=== PATIENT | male | born 1995 | race Caucasian/White ===

== ENCOUNTER 2016-12-12 16:00 | Emergency (ER) | payer OTHER ==
[2016-12-12] MEDS ORDERED: HYDROCODONE/ACETAMINOPHEN 5-325 MG TABLET PO ONE (16:44)
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
[2016-12-12] MEDS ORDERED: HYDROCODONE/ACETAMINOPHEN 5-325 MG 6 TAB/DSPK PO PRN (18:40)
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
[2016-12-12 18:51] VITALS: BP 119/78
== END 2016-12-12 19:00 | disposition home or self-care (01) ==
LOC: ER 16:00
DX: S00.33XA Contusion of nose, initial encounter (principal); S50.312A Abrasion of left elbow, initial encounter; S80.212A Abrasion, left knee, initial encounter; R51 Headache; R04.0 Epistaxis; F17.210 Nicotine dependence, cigarettes, uncomplicated; V87.7XXA Person injured in collision between other specified motor vehicles (traffic), initial encounter
CPT/HCPCS: 99283

== ENCOUNTER 2020-10-22 01:18 | Emergency (ER) | payer SELFPAY ==
--- NOTE | 2020-10-22 01:30 | ER Document Report ---
ED Substance Abuse / Acc. OD - General Chief Complaint: Possible Overdose Stated Complaint: POSS OD Time Seen by Provider: 10/22/20 01:19 Mode of Arrival: Stretcher Information source: Friend Notes: 25-year-old male presented to ED for possible drug overdose of heroin. Friend brought him inside a man and left. He states he had had a heroin 10 minutes before coming to the ED. He states he is also taken some meds. He states these are the things he uses. Patient is awake able to answer questions he is respirations regular nonlabored speaking in full sentences. Friend states he was not alert and oriented at home that is why they brought him in. Friend did leave. Patient states all he did is take a sleeping pill. We will get blood urine monitor and reassess. Constitutional: Negative for fever. HENT: Negative for sore throat. Eyes: Negative for visual changes. Cardiovascular: No overdose tachycardic Respiratory: Negative for shortness of breath. Respirations between 11 and 13 Gastrointestinal: Negative for abdominal pain, vomiting or diarrhea. Genitourinary: Negative for dysuria. Musculoskeletal: Negative for back pain. Skin: Negative for rash. Neurological: Negative for headaches, weakness or numbness. 10 point ROS negative except as marked above and in HPI. VITAL SIGNS: Within normal limits. GENERAL: No acute distress, non-toxic appearance. HEAD: Normal with no signs of head trauma. NECK: Normal range of motion, no tenderness, supple, no lymphadenopathy, No adenopathy, no JVD. CHEST: Clear breath sounds bilaterally. No wheezes, rales, or rhonchi. CARDIAC: Tachycardic VASCULAR: No Edema. Peripheral pulses normal and equal in all extremities. ABDOMEN: Normal and soft with no tenderness, no masses or pulsatile masses. GASTROINTESTINAL: Bowel sounds normal GENITOURINARY: Normal, No tenderness LYMPATHTIC: No lymphadenopathy noted. MUSCULOSKELETAL: Good range of motion of all major joints. Extremities without clubbing, cyanosis or edema. NEUROLOGICAL: Alert and oriented x 3. No focal sensory or strength deficits. Speech normal. Follows commands appropriately. PSYCHIATRIC: Agitated and angry about being in the emergency room SKIN: Normal appearance with no rashes or lesions. TRAVEL OUTSIDE OF THE [place] IN LAST 30 DAYS: No - HPI Patient complains to provider of: Drug abuse Onset: Just prior to arrival Onset/Duration: Sudden Quality of pain: No pain Severity: None Pain Level: Denies Overdose of: Other Strength: Stated unsure Amount: Unsure Time of ingestion: 01:15 Associated Symptoms: Short of breath. denies: Chest pain/discomfort, Hurts to breathe, Nausea/vomiting, Vomiting blood, Diarrhea, Bloody stool Similar symptoms previously: Yes - Related Data Allergies/Adverse Reactions: No Known Allergies Allergy (Unverified 12/12/16 16:41) Past Medical History - General Information source: Friend - Social History Smoking Status: Current Every Day Smoker Frequency of alcohol use: None Drug Abuse: Cocaine, Methamphetamine Family History: Arthritis, Thyroid Disfunction Patient has suicidal ideation: No Patient has homicidal ideation: No - Past Medical History Cardiac Medical History: Reports: None Pulmonary Medical History: Reports: None EENT Medical History: Reports: None Neurological Medical History: Reports: None Endocrine Medical History: Reports: None Renal/ Medical History: Reports: None Malignancy Medical History: Reports None GI Medical History: Reports: None Musculoskeletal Medical History: Reports None Skin Medical History: Reports None Psychiatric Medical History: Reports: None Traumatic Medical History: Reports: None Infectious Medical History: Reports: None Surgical Hx: Negative Past Surgical History: Reports: None - Immunizations Immunizations up to date: Yes Hx Diphtheria, Pertussis, Tetanus Vaccination: Yes Physical Exam - Vital signs Vitals: Temp 98.1 F 10/22/20 01:19 Course - Re-evaluation Re-evalutation: 10/22/20 07:58 Patient was awake alert able to walk with ambulate with the even steady gait. He refused to provide a urine specimen stated he did not have to give us a urine specimen he knew his rights. He states he was not staying and nobody had a right to keep him. I did instruct him that it was better if he stayed in gave himself some time in the emergency room after overdosing on heroin. He stated as long as he was able to walk he knew that we cannot give him and he was leaving. His IV was removed and he was did leave the facility his lab results had not returned when he did leave the facility. - Vital Signs Vital signs: Temp Pulse Resp BP Pulse Ox 98.1 F 43 H 133/94 H 100 10/22/20 01:19 10/22/20 01:25 10/22/20 01:20 10/22/20 01:25 - Laboratory Results Result Diagrams: 10/22/20 01:25 10/22/20 01:25 Laboratory Results Interpreted: 10/22/20 01:25 Potassium 3.5 L Carbon Dioxide 32 H Glucose 125 H Total Bilirubin 1.9 H AST 151 H ALT 276 H Acetaminophen < 10 L Critical Laboratory Results Reviewed: No Critical Results - Radiology Results Critical Radiology Results Reviewed: No Critical Results Discharge - Discharge Clinical Impression: Substance abuse Disposition: AGAINST MEDICAL ADVICE
[2020-10-22 01:38] LABS: ABSOLUTE EOSINOPHILS # (AUTO) 0.3 10^3/uL (0.0-0.6); ABSOLUTE LYMPHOCYTES (AUTO) 1.8 10^3/uL (0.5-4.7); ABSOLUTE MONOCYTES (AUTO) 0.6 10^3/uL (0.1-1.4); ABSOLUTE NEUT (AUTO) 2.4 10^3/uL (1.7-8.2); BASOPHILS % (AUTO) 0.7 % (0-2); EOSINOPHILS % (AUTO) 5.3 % (0-6); HEMATOCRIT 41.8 % (37.9-51.0); HEMOGLOBIN 14.7 g/dL (13.5-17.0); LYMPHOCYTES % (AUTO) 34.3 % (13-45); MEAN CORPUSCULAR HEMOGLOBIN 30.9 pg (27.0-33.4); MEAN CORPUSCULAR HGB CONC 35.2 g/dL (32.0-36.0); MEAN CORPUSCULAR VOLUME 88 fl (80-97); MONOCYTES % (AUTO) 12.1 % (3-13); PLATELET COUNT 280 10^3/uL (150-450); RED BLOOD COUNT 4.76 10^6/uL (4.35-5.55); RED CELL DISTRIBUTION WIDTH 13.4 % (11.5-14.0); SEGMENTED NEUTROPHILS % (AUTO) 47.6 % (42-78); TOTAL CELLS COUNTED % (AUTO) 100 %; WHITE BLOOD COUNT 5.1 10^3/uL (4.0-10.5)
[2020-10-22 01:58] VITALS: BP 133/94
[2020-10-22 01:59] LABS: ALBUMIN 4.1 g/dL (3.5-5.0); ALKALINE PHOSPHATASE 101 U/L (38-126); ANION GAP 8 (5-19); ASPARTATE AMINO TRANSFERASE 151 U/L (17-59); BILIRUBIN,DIRECT 0.1 mg/dL (0.0-0.4); BILIRUBIN,TOTAL 1.9 mg/dL (0.2-1.3); BLOOD UREA NITROGEN 18 mg/dL (7-20); CALCIUM 8.9 mg/dL (8.4-10.2); CARBON DIOXIDE 32 mmol/L (22-30); CHLORIDE 99 mmol/L (98-107); GLUCOSE 125 mg/dL (75-110); POTASSIUM 3.5 mmol/L (3.6-5.0); TOTAL PROTEIN 7.5 g/dL (6.3-8.2)
[2020-10-22 02:04] LABS: ACETAMINOPHEN < 10 ug/mL (10-30); ALCOHOL < 10 mg/dL (NONE DETECTED)
== END 2020-10-22 02:39 | disposition left against medical advice (07) ==
LOC: ER 01:18
DX: T40.1X1A Poisoning by heroin, accidental (unintentional), initial encounter (principal); R00.0 Tachycardia, unspecified; R06.02 Shortness of breath; F17.200 Nicotine dependence, unspecified, uncomplicated; F19.10 Other psychoactive substance abuse, uncomplicated
CPT/HCPCS: 36415; 80053; 80307; 83690; 85025; 99284